=== PATIENT | male | born 1975 | race Caucasian/White ===

== ENCOUNTER 2016-09-10 18:08 | Observation (INO) | payer SELFPAY ==
[~2016-09-10] VITALS: Ht 177.8 cm; Wt 93.0 kg
[2016-09-10 18:40] LABS: BASO # 0.1 x10^3/uL (0.0-0.2); BASO % 1 % (0-3); EOS % 4 % (0-3); HEMATOCRIT 45.2 % (39.0-53.0); HEMOGLOBIN 15.5 g/dL (13.0-17.5); LYMPH # 3.2 x10^3/uL (1.0-4.8); LYMPH % 26 % (24-48); MEAN CORPUSCULAR HEMOGLOBIN 31 pg (25-35); MEAN CORPUSCULAR HGB CONC 34 g/dL (31-37); MEAN CORPUSCULAR VOLUME 91 fL (79-100); MONO % 6 % (0-9); NEUT % 64 % (31-73); PLATELET COUNT 212 x10^3/uL (140-400); RED BLOOD COUNT 4.95 x10^6/uL (4.30-5.70); RED CELL DISTRIBUTION WIDTH 13.2 % (11.5-14.5); WHITE BLOOD COUNT 12.3 x10^3/uL (4.0-11.0)
[2016-09-10 18:52] LABS: CALCIUM 9.1 mg/dL (8.5-10.1); CREATININE 0.9 mg/dL (0.7-1.3); GFR 93.5; POTASSIUM 4.5 mmol/L (3.5-5.1)
--- NOTE | 2016-09-10 19:21 | PHYS DOC ---
Past Medical History Past Medical History: No Pertinent History Past Surgical History: Other Additional Past Surgical Histo: hernia Alcohol Use: None Drug Use: Marijuana Adult General Chief Complaint Chief Complaint: CHEST PAIN HPI HPI 41-year-old male presenting to the emergency department today with chest pain. He describes a pain that radiates to both arms. The pain began 1 hour prior to arrival. It is moderate dull achy. He associates it with shortness of breath. Denies nausea vomiting or diaphoresis. He denies having diabetes high cholesterol. He is unsure whether he has high blood pressure. He reports a strong family history of heart disease. Eyes unilateral leg swelling hemoptysis personal or family history of blood clotting disorders. His recent surgery or immobilization. Review of systems is negative for abdominal pain nausea vomiting diaphoresis fevers or chills. All other review of systems is negative unless otherwise noted in history of present illness. ED course: 41-year-old gentleman presenting to the emergency department with chest pain. EKG unremarkable. EKG shows sinus rhythm with regular rate. Normal intervals. Normal axis. ST segments are congruent. Not suggestive of ACS. Reviewed by myself. Chest x-ray reviewed by myself shows no obvious infiltrate or pneumothorax present. No obvious acute cardiopulmonary process present. Troponin initially negative. Given the strong family history and timing of the patient's chest pain he was admitted under observation status for serial troponins and cardiology consultation further workup and evaluation and care. Review of Systems Review of Systems SEE ABOVE. Allergies Allergies Allergies Coded Allergies Type Severity Reaction Last Updated Verified No Known Drug Allergies 09/10/16 No Physical Exam Physical Exam Constitutional: Well developed, well nourished, no acute distress, non-toxic appearance. [] HENT: Normocephalic, atraumatic, bilateral external ears normal, oropharynx moist, no oral exudates, nose normal. Eyes: PERRLA, EOMI, conjunctiva normal, no discharge. [] Neck: Normal range of motion, no tenderness, supple, no stridor. [] Cardiovascular:Heart rate regular rhythm, no murmur [] Lungs & Thorax: Bilateral breath sounds clear to auscultation [] Abdomen: Bowel sounds normal, soft, no tenderness, no masses, no pulsatile masses. Skin: Warm, dry, no erythema, no rash. [] Back: No tenderness, no CVA tenderness. Extremities: No tenderness, no cyanosis, no clubbing, ROM intact, no edema. Neurologic: Alert and oriented X 3, normal motor function, normal sensory function, no focal deficits noted. [] Psychologic: Affect normal, judgement normal, mood normal. [] Current Patient Data Vital Signs Vital Signs Date Time Temp Pulse Resp B/P (MAP) Pulse Ox O2 Delivery O2 Flow Rate FiO2 09/10/16 18:10 97.7 90 16 162/90 (114) 98 Room Air 97.7 Lab Values Laboratory Tests Test 09/10/16 18:35 White Blood Count 12.3 x10^3/uL (4.0-11.0) H Red Blood Count 4.95 x10^6/uL (4.30-5.70) Hemoglobin 15.5 g/dL (13.0-17.5) Hematocrit 45.2 % (39.0-53.0) Mean Corpuscular Volume 91 fL (79-100) Mean Corpuscular Hemoglobin 31 pg (25-35) Mean Corpuscular Hemoglobin Concent 34 g/dL (31-37) Red Cell Distribution Width 13.2 % (11.5-14.5) Platelet Count 212 x10^3/uL (140-400) Neutrophils (%) (Auto) 64 % (31-73) Lymphocytes (%) (Auto) 26 % (24-48) Monocytes (%) (Auto) 6 % (0-9) Eosinophils (%) (Auto) 4 % (0-3) H Basophils (%) (Auto) 1 % (0-3) Neutrophils # (Auto) 7.8 x10^3uL (1.8-7.7) H Lymphocytes # (Auto) 3.2 x10^3/uL (1.0-4.8) Monocytes # (Auto) 0.8 x10^3/uL (0.0-1.1) Eosinophils # (Auto) 0.4 x10^3/uL (0.0-0.7) Basophils # (Auto) 0.1 x10^3/uL (0.0-0.2) Sodium Level 140 mmol/L (136-145) Potassium Level 4.5 mmol/L (3.5-5.1) Chloride Level 104 mmol/L (98-107) Carbon Dioxide Level 30 mmol/L (21-32) Anion Gap 6 (6-14) Blood Urea Nitrogen 17 mg/dL (8-26) Creatinine 0.9 mg/dL (0.7-1.3) Estimated GFR (Cockcroft-Gault) 93.5 Glucose Level 105 mg/dL (70-99) H Calcium Level 9.1 mg/dL (8.5-10.1) Troponin I Quantitative < 0.017 ng/mL (0.000-0.055) Laboratory Tests 09/10/16 18:35 Laboratory Tests 09/10/16 18:35 EKG EKG [] Radiology/Procedures Radiology/Procedures [] Course & Med Decision Making Course & Med Decision Making Pertinent Labs and Imaging studies reviewed. (See chart for details) [] Dragon Disclaimer Dragon Disclaimer This electronic medical record was generated, in whole or in part, using a voice recognition dictation system. Departure Departure Impression: Primary Impression: Chest pain Disposition: ADMITTED INPATIENT (ADMITTED OBSERVATION) Condition: STABLE Referrals: NO PCP (PCP) ENZO EDMONDS MD Sep 10, 2016 19:21
[2016-09-10] MEDS: IV NORMAL SALINE 1000ML BAG 1,000 ML IV SCH (19:22)
[2016-09-10 19:50] VITALS: BP 124/77
[2016-09-10] MEDS: MORPHINE SULFATE 2 MG/ML DISP.SYRIN. IV PRN (21:06)
[2016-09-10] MEDS: ONDANSETRON PF 4 MG/2 ML VIAL. IV PRN (21:12)
[2016-09-10 22:51] VITALS: BP 128/84
--- NOTE | 2016-09-11 00:09 | HP ---
ADMIT DATE: 09/10/2016 CHIEF COMPLAINT: Chest pain. HISTORY OF PRESENT ILLNESS: The patient is a pleasant middle-aged male who presents with chest pain. He states he has got a strong family history of coronary artery disease. He is concerned he could be having a heart attack, rates it 09/25. I have discussed the case with the ER physician. We are going to admit the patient and consult Cardiology. PAST MEDICAL HISTORY: Ventral hernia, otherwise benign. ALLERGIES: None. FAMILY HISTORY: Strong history of coronary artery disease in the males in his family, most of them at age 50 or younger. SOCIAL HISTORY: He does not drink, smoke or take drugs. MEDICATIONS: Reviewed. REVIEW OF SYSTEMS: GENERAL: No history of weight change, weakness or fevers. SKIN: No bruising, hair changes or rashes. EYES: No blurred, double or loss of vision. NOSE AND THROAT: No history of nosebleeds, hoarseness or sore throat. HEART: The patient complains of chest pain. LUNGS: Denies cough, hemoptysis, wheezing or shortness of breath. GASTROINTESTINAL: Denies changes in appetite, nausea, vomiting, diarrhea or constipation. GENITOURINARY: No history of frequency, urgency, hesitancy or nocturia. NEUROLOGIC: Denies history of numbness, tingling, tremor or weakness. PSYCHIATRIC: No history of panic, anxiety or depression. ENDOCRINE: No history of heat or cold intolerance, polyuria or polydipsia. EXTREMITIES: Denies muscle weakness, joint pain, pain on walking or stiffness. PHYSICAL EXAMINATION: VITAL SIGNS: Temperature, afebrile; pulse 67; respirations 20; blood pressure 132/74. GENERAL: He is alert and cooperative but anxious. HEART: Normal S1 and S2. LUNGS: Clear. ABDOMEN: Soft. EXTREMITIES: No edema. SKIN: No rashes. PSYCHIATRIC: He is anxious. VASCULAR: Good capillary refill. ENDOCRINE: No thyromegaly. LYMPHATICS: No cervical nodes. HEMATOPOIETIC: No bruising. LABORATORY AND IMAGING DATA: Troponin is 0. EKG shows sinus rhythm. ASSESSMENT AND PLAN: Chest pain, rule out coronary artery disease. The patient has been admitted. We will check serial enzymes and serial EKGs. Consult cardiology. Suspect he will need a stress test. Daily aspirin. Continue home medicines. MÓNICAL Nirmal HOWE DO DR: Anil JOB#: [id number] / [id number]
[2016-09-11 01:01] LABS: BASO # 0.1 x10^3/uL (0.0-0.2); BASO % 1 % (0-3); EOS % 5 % (0-3); HEMATOCRIT 44.5 % (39.0-53.0); HEMOGLOBIN 14.9 g/dL (13.0-17.5); LYMPH # 3.6 x10^3/uL (1.0-4.8); LYMPH % 33 % (24-48); MEAN CORPUSCULAR HEMOGLOBIN 31 pg (25-35); MEAN CORPUSCULAR HGB CONC 34 g/dL (31-37); MEAN CORPUSCULAR VOLUME 92 fL (79-100); MONO % 7 % (0-9); NEUT % 56 % (31-73); PLATELET COUNT 186 x10^3/uL (140-400); RED BLOOD COUNT 4.84 x10^6/uL (4.30-5.70); RED CELL DISTRIBUTION WIDTH 13.3 % (11.5-14.5); WHITE BLOOD COUNT 11.1 x10^3/uL (4.0-11.0)
[2016-09-11 01:13] LABS: CALCIUM 8.4 mg/dL (8.5-10.1); CREATININE 0.9 mg/dL (0.7-1.3); GFR 93.5; POTASSIUM 4.1 mmol/L (3.5-5.1)
[2016-09-11 03:11] VITALS: BP 121/73
[2016-09-11] MEDS: IV NORMAL SALINE 1000ML BAG 1,000 ML IV SCH ×2 (03:31→11:15)
[2016-09-11] MEDS: MORPHINE SULFATE 2 MG/ML DISP.SYRIN. IV PRN ×2 (06:02→10:21)
--- NOTE | 2016-09-11 06:29 | EKG ---
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
--- NOTE | 2016-09-11 07:32 | RAD ---
Indication: Chest pain. Time of exam 1843 hours. No prior studies are available for comparison. FINDINGS: The heart size is normal. The lungs are clear. No pleural effusion or pneumothorax is identified. The pulmonary vascularity is normal. IMPRESSION: No acute abnormality detected.
[2016-09-11 07:55] VITALS: BP 129/77
--- NOTE | 2016-09-11 09:48 | PDOC2 ---
CARDIAC CONSULT DATE OF CONSULT Date of Consult DATE: 09/11/16 TIME: 09:44 REASON FOR CONSULT Reason for Consult: Chest Pain REFERRING PHYSICIAN Referring Physician: Dr. Molina SOURCE Source: Chart review, Patient HISTORY OF PRESENT ILLNESS HISTORY OF PRESENT ILLNESS This is a 41 yo male who presented with complaints of chest pain. 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 Located in left chest. Describes as stabbing in nature. Radiated to bilateral arms. Associated with SOA and lightheadedness. Denies any dizziness, diaphoresis , palpitations, or nausea/vomiting. No recent fatigue or . Pain lasted approximately 15 mins and resolved without intervention. Strong family history of ID's; both brother and dad in mid- 50's. No previous cardiac workup. PAST MEDICAL HISTORY Cardiovascular: No pertinent hx Pulmonary: No pertinent hx GI: No pertinent hx Heme/Onc: No pertinent hx Hepatobiliary: No pertinent hx Psych: Anxiety, Depression Musculoskeletal: Osteoarthritis Infectious disease: No pertinent hx, Other (MRSA in wound ) ENT: No pertinent hx Renal/: No pertinent hx Endocrine: No pertinent hx Dermatology: Eczema, Psoriasis PAST SURGICAL HISTORY Past Surgical History: Hernia Repair FAMILY HISTORY Family History: Coronary Artery Disease, Diabetes, High Cholestrol, Hypertension SOCIAL HISTORY Smoke: <1 pack per day ALCOHOL: none Drugs: Marijuana Lives: with Family CURRENT MEDICATIONS CURRENT MEDICATIONS Current Medications Medications (Trade) Dose Ordered Sig/Liilan Route PRN Reason Start Time Stop Time Status Last Admin Dose Admin Ondansetron HCl (Zofran) 4 mg PRN Q8HRS PRN IV NAUSEA/VOMITING 09/10/16 19:15 09/11/16 19:14 09/10/16 21:12 Morphine Sulfate 2 mg PRN Q2HR PRN IV PAIN 09/10/16 19:15 09/11/16 19:14 09/11/16 06:02 Sodium Chloride 1,000 ml @ 125 mls/hr Q8H IV 09/10/16 19:15 09/11/16 19:14 09/11/16 03:31 ALLERGIES ALLERGIES: Coded Allergies: No Known Drug Allergies (Unverified , 09/10/16) ROS Review of System 14 point ROS conducted with pertinent positives noted above in HPI. PHYSICAL EXAM General: Alert, Oriented X3, Cooperative, No acute distress HEENT: Atraumatic, Mucous membr. moist/pink Lungs: Clear to auscultation, Normal air movement Heart: Regular rate, Normal S1, Normal S2 Abdomen: Soft, No tenderness Extremities: No edema, Normal pulses Skin: No breakdown, No significant lesion Neuro: Normal speech, Sensation intact Psych/Mental Status: Mental status NL, Mood NL MUSCULOSKELETAL: No muscular tenderness noted VITALS VITALS Vital Signs Date Time Temp Pulse Resp B/P (MAP) Pulse Ox O2 Delivery O2 Flow Rate FiO2 09/11/16 08:02 Room Air 09/11/16 07:55 97.8 62 18 129/77 (94) 95 97.8 LABS Lab: Laboratory Tests Test 09/10/16 18:35 09/11/16 00:55 09/11/16 07:00 White Blood Count 12.3 x10^3/uL (4.0-11.0) 11.1 x10^3/uL (4.0-11.0) Red Blood Count 4.95 x10^6/uL (4.30-5.70) 4.84 x10^6/uL (4.30-5.70) Hemoglobin 15.5 g/dL (13.0-17.5) 14.9 g/dL (13.0-17.5) Hematocrit 45.2 % (39.0-53.0) 44.5 % (39.0-53.0) Mean Corpuscular Volume 91 fL (79-100) 92 fL (79-100) Mean Corpuscular Hemoglobin 31 pg (25-35) 31 pg (25-35) Mean Corpuscular Hemoglobin Concent 34 g/dL (31-37) 34 g/dL (31-37) Red Cell Distribution Width 13.2 % (11.5-14.5) 13.3 % (11.5-14.5) Platelet Count 212 x10^3/uL (140-400) 186 x10^3/uL (140-400) Neutrophils (%) (Auto) 64 % (31-73) 56 % (31-73) Lymphocytes (%) (Auto) 26 % (24-48) 33 % (24-48) Monocytes (%) (Auto) 6 % (0-9) 7 % (0-9) Eosinophils (%) (Auto) 4 % (0-3) 5 % (0-3) Basophils (%) (Auto) 1 % (0-3) 1 % (0-3) Neutrophils # (Auto) 7.8 x10^3uL (1.8-7.7) 6.2 x10^3uL (1.8-7.7) Lymphocytes # (Auto) 3.2 x10^3/uL (1.0-4.8) 3.6 x10^3/uL (1.0-4.8) Monocytes # (Auto) 0.8 x10^3/uL (0.0-1.1) 0.7 x10^3/uL (0.0-1.1) Eosinophils # (Auto) 0.4 x10^3/uL (0.0-0.7) 0.5 x10^3/uL (0.0-0.7) Basophils # (Auto) 0.1 x10^3/uL (0.0-0.2) 0.1 x10^3/uL (0.0-0.2) Sodium Level 140 mmol/L (136-145) 142 mmol/L (136-145) Potassium Level 4.5 mmol/L (3.5-5.1) 4.1 mmol/L (3.5-5.1) Chloride Level 104 mmol/L (98-107) 106 mmol/L (98-107) Carbon Dioxide Level 30 mmol/L (21-32) 29 mmol/L (21-32) Anion Gap 6 (6-14) 7 (6-14) Blood Urea Nitrogen 17 mg/dL (8-26) 17 mg/dL (8-26) Creatinine 0.9 mg/dL (0.7-1.3) 0.9 mg/dL (0.7-1.3) Estimated GFR (Cockcroft-Gault) 93.5 93.5 Glucose Level 105 mg/dL (70-99) 103 mg/dL (70-99) Calcium Level 9.1 mg/dL (8.5-10.1) 8.4 mg/dL (8.5-10.1) Troponin I Quantitative < 0.017 ng/mL (0.000-0.055) < 0.017 ng/mL (0.000-0.055) < 0.017 ng/mL (0.000-0.055) ASSESSMENT/PLAN ASSESSMENT/PLAN 1. Chest pain, with atypical features; troponin series normal, AMI ruled out. EKG without significant acute changes 2. Tobaccoism; discussed and encouraged cessation 3. Substance use; check UDS Recommendations Add ASA. Check lipids D/w primary cardiology; given symptomatology and significant history/risk factors, will proceed with MPI to r/o ischemia. If negative, may discharge from a CV standpoint. Problems: RACHAEL ALBERT APRN Sep 11, 2016 09:48
[2016-09-11 10:07] LABS: CHOLESTEROL/HDL RATIO 9.3
[2016-09-11] MEDS: ONDANSETRON PF 4 MG/2 ML VIAL. IV PRN (10:26)
[2016-09-11] MEDS ORDERED: ASPIRIN 325 MG TABLET PO ONE (10:30)
[2016-09-11 10:46] VITALS: BP 123/76
[2016-09-11] MEDS ORDERED: REGADENOSON 0.4 MG/5 ML DISP.SYRIN. IV ONE (11:15)
[2016-09-11] MEDS ORDERED: ATOR40TA59 PO (11:55)
--- NOTE | 2016-09-11 11:57 | PDOC3 ---
Discharge Summary [facility] Date of Admission: Sep 10, 2016 Discharge Date: Sep 11, 2016 Admitting Diagnosis chest pain, likely 2/2 muscular pain possible left shoulder OA tobaccoism Problems: Final Diagnosis CONSULTS card Brief Hospital Course Mr. Strickland is a 41 old M, who has h/o left shoulder pain for 1.5ys, comes for chest pain, with tenderness. denies recent injury, not seeing any PCP OR Ortho yet. smoking, + PMH for CAD. CE neg. card consulted, MPI today, dc home if neg. dc with lipitor. dc time 35min HEART: Normal S1 and S2.. middle chest , left chest and left shoulder tenderness LUNGS: Clear. ABDOMEN: Soft. EXTREMITIES: No edema. SKIN: No rashes. PSYCHIATRIC: He is anxious. VASCULAR: Good capillary refill. ENDOCRINE: No thyromegaly. LYMPHATICS: No cervical nodes. HEMATOPOIETIC: No bruising. Patient History: FHx: myocardial infarction grandfather, Onset:40's - 50 Problems: Disposition home CONDITION AT DISCHARGE: Improved Diet regular Miscellaneous Medications Info (No Known Medications Prior To Admisstion), 1 EACH , (Reported) ERICK DARDEN MD Sep 11, 2016 11:57
[2016-09-11 13:34] LABS: BARBITURATES NEG (NEG); BENZODIAZEPINES NEG (NEG); CANNABINOIDS POS (NEG); COCAINE NEG (NEG); METHADONE NEG (NEG); OPIATES POS (NEG); PHENCYCLIDINE NEG (NEG)
--- NOTE | 2016-09-11 14:34 | RAD ---
APPROVED REPORT Test Type: Pharmacological Stress Nurse/Tech: Mar Mckeon R.N. Test Indications: chest pain Cardiac History: Family history, smoker Medications: See Electronic Medical Record Medical History: See Electronic Medical Record Resting ECG: s. jack Resting Heart Rate: 46 bpm Resting Blood Pressure: 131/86mmHg Pretest Chest Pain: Atypical angina Nurse/Tech Notes S1S2, lungs sound clear, states he has a constant pressure in left side of chest rated at 3 Consent: The procedure was explained to the patient in lay terms. Informed consent was witnessed. Kin eout was entered into [employer]. History and Stress Test performed by Mar Mckeon R.N. Pharm. Details Pharmacologic stress testing was performed using 0.4mg per 5ml of regadenoson given intravenously ove r 7-10 seconds. Stress Symptoms Dyspnea POST EXERCISE Reason for Termination: Infusion complete Max HR: 100 bpm Max Blood Pressure: 149/101mmHg Blood Pressure response to exercise: Normal blood pressure response during stress. Chest Pain: Yes. stayed at 3 till end then went away Arrhythmia: No. ST Change: No. INTERPRETATION Stress EKG Conclusion: The resting EKG shows mild non specific ST changes. The stress EKG shows no significant changes from baseline. No EKG changes of stress induced ischemia. Imaging Protocol IMAGE PROTOCOL: Rest Tc-99m/stress Tc-99m 1 day Rest: Stress: Viability: Radiopharm.Tc99m [id number] Sestamibi [id number] 32.5mCi Img Date 09/11/2016 09/11/2016 Rest Admin Site:IV - Right AntecubitalAdministrator:Ken Willis, RT (R)(N) Stress Admin Site: IV - Right AntecubitalAdministrator: Lata Zaldivar, RT (R)(N) STRESS DATA End Diast. Vol.172.0mlAv. Heart Rate73.0bpm End Syst. Vol.45.0mlCO Index BSA0.0L/min Myocardial Xeei486.0gEject. Hhdbbeec52.0% Stress Rates Pk. Fill Rate3.34EDV/secLVtime Pk. Fill 148.41msec Pk. Empty Rate3.83ESV/secLVtime Pk. Ushdn515.48msec / Pk. Fill1.58EDV/sec Stress Scores Regional WT0.00Summed WT1.00 Regional WM0.00Summed WM0.00 LV Perfusion The stress scans show no significant abnormalities. The rest scans show no signmificant abnormalities. Nuclearn imaging shows no reversible ischemia or infarct. Wall Motion Normal LV systoloc function with an ejection fraction of > 70%. LV Perf. Quant 17 Seg. SSS0.00 17 Seg. SRS4.00 17 Seg. SDS0.00 Stress Defect Extent (% LAD)3.10Rest Defect Extent (% LAD)20.60Rev. Defect Extent (% LAD)0.00 Stress Defect Extent (% LCX) 0.00Rest Defect Extent (% LCX)0.00Rev. Defect Extent (% LCX)0.00 Stress Defect Extent (% RCA)0.00Rest Defect Extent (% RCA)0.00Rev. Defect Extent (% RCA)0.00 Stress Defect Extent (% KIET)1.70Rest Defect Extent (% KIET)9.10Rev. Defect Extent (% KIET)0.00 Conclusion 1. No EKG evidence of stress induced ischemia. 2. Nuclear imaging shows no reversible ischemia or infarct. 3. Normal LV systolic function with an ejection fraction of > 70%. 4. Low risk Lexiscan nuclear stress test.
[2016-09-11 15:12] VITALS: BP 137/83
[2016-09-11] MEDS ORDERED: ATORVASTATIN CALCIUM 40 MG TABLET. PO SCH (21:00)
== END 2016-09-11 15:22 | disposition home or self-care (01) ==
LOC: ER 18:08 → 6 SOUTH 19:15
PROVIDERS: ADMIT Internal Medicine; ATTEND Internal Medicine
DX: R07.89 Other chest pain (principal); I25.10 Atherosclerotic heart disease of native coronary artery without angina pectoris; F32.9 Major depressive disorder, single episode, unspecified; F41.9 Anxiety disorder, unspecified; L40.9 Psoriasis, unspecified; M19.90 Unspecified osteoarthritis, unspecified site; F19.10 Other psychoactive substance abuse, uncomplicated; F17.210 Nicotine dependence, cigarettes, uncomplicated; Z83.3 Family history of diabetes mellitus; Z83.42 Family history of familial hypercholesterolemia; Z82.49 Family history of ischemic heart disease and other diseases of the circulatory system
CPT/HCPCS: 36415; 71010; 78452; 80048; 80061; 84484; 85027; 93005; 93017; 96361; 96374; 96375; 96376; 99285; A9500; G0378; G0481; J2270; J2405; J2785; J7030; G0379